=== PATIENT | female | born 1940 | race Caucasian/White ===

== ENCOUNTER 2023-10-21 16:33 | Outpatient (CLI) | payer OTHER | END 2023-10-21 16:34 | disposition home or self-care (01) | LOC: CSHRAD 16:33 | PROVIDERS: ATTEND Family Medicine | DX: M25.562 Pain in left knee (principal); M25.462 Effusion, left knee ==

== ENCOUNTER 2023-10-21 17:16 | Emergency (ER) | payer OTHER | END 2023-10-21 19:59 | disposition home or self-care (01) | LOC: CSHERS 17:16 | DX: M71.20 Synovial cyst of popliteal space [Baker], unspecified knee (principal); Z95.0 Presence of cardiac pacemaker; M25.562 Pain in left knee; M25.462 Effusion, left knee ==